=== PATIENT | male | born 1990 | race Hispanic/Latino ===

== ENCOUNTER 2018-06-04 04:16 | Emergency (ER) | payer OTHER ==
[~2018-06-04] VITALS: Ht 177.8 cm; Wt 80.4 kg
[2018-06-04 05:14] VITALS: BP 144/88
== END 2018-06-04 05:15 | disposition home or self-care (01) | DRG 923 ==
LOC: ED 04:16
DX: Z04.1 Encounter for examination and observation following transport accident (principal); V48.0XXA Car driver injured in noncollision transport accident in nontraffic accident, initial encounter; Y92.410 Unspecified street and highway as the place of occurrence of the external cause

== ENCOUNTER 2022-01-13 23:39 | Emergency (ER) | payer OTHER ==
[~2022-01-13] VITALS: Ht 177.8 cm; Wt 81.0 kg
[2022-01-14] VITALS: BP 119/82
[2022-01-14 00:09] LABS: HEMATOCRIT 47.2 % (39.0-50.0); HEMOGLOBIN 16.9 g/dl (14.0-18.0); IMMATURE GRANULOCYTES 0.2 % (0.0-5.0); MEAN CELL VOLUME 89.2 fL CALC (80.0-100.0); MEAN CORPUSCULAR HGB 31.9 pG CALC (26.0-32.0); MEAN CORPUSCULAR HGB CONC 35.8 g/dL CAL (32.0-36.0); NEUT# 3.58 thou/uL (1.82-7.42); RED BLOOD COUNT 5.29 mill/uL (4.70-6.10); RED CELL DISTRI WIDTH 12.9 % (11.5-15.5)
[2022-01-14 00:15] VITALS: BP 113/65
[2022-01-14 00:17] LABS: ALKALINE PHOSPHATASE 62 u/l (38-126); ANION GAP 20 (6-22 (CALC)); BILIRUBIN, TOTAL 0.3 mg/dL (0.0-1.4); BUN 12 mg/dL (9-20); BUN/CREATININE RATIO 14 (12-20 (CALC)); CARBON DIOXIDE 21 mmol/l (22-30); CHLORIDE 111 mmol/l (95-108); CREATININE 0.8 mg/dL (0.7-1.3); GFR FOR AFR.AMER. > 60 ML/MIN (>=60 (CALC)); GFR OTHER RACES > 60 ML/MIN (>=60 (CALC)); POTASSIUM 3.8 mmol/l (3.5-5.1); SGOT/AST 26 u/l (17-59); SODIUM 149 mmol/l (137-146); TOTAL PROTEIN 8.5 g/dL (6.3-8.2)
[2022-01-14 00:30] VITALS: BP 111/63; BP 113/65
== END 2022-01-14 00:45 | disposition home or self-care (01) | DRG 951 ==
LOC: ED 23:39
PROVIDERS: Emergency Medicine
DX: Z04.89 Encounter for examination and observation for other specified reasons (principal); F10.10 Alcohol abuse, uncomplicated; Y90.7 Blood alcohol level of 200-239 mg/100 ml